=== PATIENT | female | born 1970 | race Caucasian/White ===

== ENCOUNTER 2019-09-06 18:32 | Emergency (ER) | payer BC, SELFPAY ==
[2019-09-06 18:34] VITALS: BP 160/96; PULSE 84; RESP 19; TEMP 36.7; O2SAT 98; BMI 49.4
--- NOTE | 2019-09-06 18:38 | XR_ITS ---
PROCEDURE: XR HUMERUS RT CLINICAL INDICATION: fall Posttraumatic pain COMPARISON: No exams were available for comparison FINDINGS: No fracture or dislocation. No lytic or blastic change. There is normal mineralization. There are mild osteoarthritic changes of the glenohumeral joint. Bone plate is present along the distal shaft of the clavicle. Other findings:None. IMPRESSION: No acute findings. Dictated by: Abraham West MD 09/06/2019 19:45 Electronically signed by Abraham West MD in [place] 09/06/2019 19:45
--- NOTE | 2019-09-06 18:38 | XR_ITS ---
PROCEDURE: XR ELBOW RT MIN 3V CLINICAL INDICATION: fall Posttraumatic pain COMPARISON: No exams were available for comparison FINDINGS: No fracture or dislocation. No lytic or blastic change. There is normal mineralization. Minimal osteoarthritic changes are present. There is a small calcific density along the coracoid process seen on the lateral view suggesting a small spur. No displaced fat pad Other findings:None. IMPRESSION: No acute findings. Dictated by: Abraham West MD 09/06/2019 19:48 Electronically signed by Abraham West MD in [place] 09/06/2019 19:48
--- NOTE | 2019-09-06 18:38 | XR_ITS ---
PROCEDURE: XR FOREARM RT 2V CLINICAL INDICATION: fall Posttraumatic pain COMPARISON: XR WRIST RT MIN 3V from 09/06/2019 XR HAND RT MIN 3V from 09/06/2019 FINDINGS: There is an impacted displaced fracture involving the distal radius with intra-articular involvement. There is 8 mm lateral and 10 mm anterior displacement of the lateral fracture fragment. There is an associated avulsion of the ulnar styloid process minimally distracted as well as a transverse fracture involving the distal aspect of the ulna IMPRESSION: Displaced comminuted intra-articular distal radial fracture with nondisplaced distal ulnar fracture and minimally distracted ulnar styloid process fracture Dictated by: Abraham West MD 09/06/2019 19:53 Electronically signed by Abraham West MD in [place] 09/06/2019 19:53
--- NOTE | 2019-09-06 18:52 | HMH.EDGENADL ---
ED Disposition Clinical Impression: Radial head fracture, closed Disposition: Home, Self-Care Condition on Discharge: Good Instructions: DI for Acute Pain -- Adult Additional Instructions: These follow-up with Dr. Pettit tomorrow morning at 9 AM. Her number is [phone] Wilver's number her office number and here [phone] Prescriptions: Ketorolac Tromethamine [Toradol 10mg tablet] 10 mg PO Q6H 5 Days #20 tab Transmission Status: Pending to [id number] Referrals: Provider,Referral, [Primary Care Provider] - - Critical Care Critical Care Time: No Attestation: On 09/06/19, the high probability of a clinically significant, sudden or life threatening deterioration of the following system(s) required my full and direct attention, intervention and personal management. The time I documented below is in addition to time spent performing reported procedures but includes the following listed in this critical care notation. Medical Decision Making - Medical Records Medical records reviewed: Yes: I reviewed the patient's medical records. - Nikolay Inquiry Pt receiving controlled substance: No Vital Signs: 09/06/19 18:34 Temperature 98.1 F Temperature Source Oral Pulse Rate [Radial] 84 Respiratory Rate 19 Blood Pressure [Right Arm] 160/96 H Blood Pressure Mean [Right Arm] 117 Blood Pressure Source [Right Arm] Automatic Cuff Blood Pressure Position [Right Arm] Supine 02 Sat by Pulse Oximetry 98 Oxygen Delivery Method Room Air - Lab Data Lab results reviewed: Yes: I reviewed the patient's lab results. Orders (Tests/Meds): ED MEDICATIONS Discontinued Medications Generic Name Dose Route Start Last Admin Trade Name Abby PRN Reason Stop Dose Admin Acetaminophen/Codeine Phosphate 1 deep 09/06/19 19:29 Acetaminophen W/Codeine #3 Take Home Pack (6) PO 09/06/19 19:30 ONCE ONE Ketorolac Tromethamine 60 mg 09/06/19 19:26 Toradol 60mg/2ml Vial IM 09/06/19 19:27 ONCE ONE Morphine Sulfate 4 mg 09/06/19 19:26 Morphine 2mg/Ml Syringe IM 09/06/19 19:27 ONCE ONE ORDERS Category Date Time Status XR elbow RT min 3V Stat Exams 09/06/19 18:38 Taken XR forearm RT 2V Stat Exams 09/06/19 18:40 Taken XR hand RT min 3V Stat Exams 09/06/19 18:50 Taken XR humerus RT Stat Exams 09/06/19 18:38 Taken XR wrist RT min 3V Stat Exams 09/06/19 18:38 Taken - Radiology Data #1 Image(s): Wrist Preliminary Findings: Abnormal (He has a distal radial fracture placed) General Adult HPI - General Chief complaint: PAIN Stated complaint: AO 09/06/19 fall possible broken R arm Time Seen by Provider: 09/06/19 18:52 Mode of Arrival: Ambulatory Source of Information: Patient Limitations: No Limitations Description of Symptoms (Recalled from ER Triage Doc. by RN): tripped over dog and hurt righ arm - History of Present Illness HPI narrative: 49-year-old female presents the ED after a fall. She was outside walking her dog about 40 minutes prior to arrival to the emergency department and her dog got site of a feline and darted towards the animal. When this transpired patient fell with an outstretched right hand is complaining of wrist pain arm pain and elbow pain. Patient states the pain is 4 out of 10 and manageable with ice applied is the alleviating factor she does describe this pain is sharp. And she states exacerbating factors include ambulation of the arm patient denies any other trauma patient denies any other symptoms. - Related Data Previous Rx's Medication Instructions Recorded Ketorolac Tromethamine [Toradol 10 mg PO Q6H 5 Days #20 tab 09/06/19 10mg tablet] Allergies Allergy/AdvReac Type Severity Reaction Status Date / Time No Known Allergies Allergy Verified 09/06/19 18:41 [facility] History - Hepatitis A Screen Drug use history?: No High risk sexual behaviors?: No History of sexually transmitted infection?: No Curre
--- NOTE | 2019-09-06 19:31 | PC.NURSE ---
with pts permission pts was updated on the pts condition at this time.
--- NOTE | 2019-09-06 19:50 | PC.NURSE ---
3 Ulnar gutter placed, stabilizing wrist and elbow, wrapped with nadir wrap and placed in sling. Cap refill <3 sec and normal sensation. Pt educated on monitoring distal circulation.
[2019-09-06 19:53] VITALS: BP 152/82; PULSE 86; RESP 14; TEMP 36.7; O2SAT 98
== END 2019-09-06 19:57 | disposition home or self-care (01) ==
PROVIDERS: Emergency Provider Family Medicine
DX: S52.121A Displaced fracture of head of right radius, initial encounter for closed fracture (principal); S52.614A Nondisplaced fracture of right ulna styloid process, initial encounter for closed fracture; W01.0XXA Fall on same level from slipping, tripping and stumbling without subsequent striking against object, initial encounter; Y93.K1 Activity, walking an animal; Y92.414 Local residential or business street as the place of occurrence of the external cause
CPT/HCPCS: 29125; 73060; 73080; 73090; 73110; 73130; 96372; 96375; 99284

== ENCOUNTER → 2019-09-07 13:58 | Outpatient (CLI) | payer BC, SELFPAY ==
--- NOTE | 2019-09-07 14:04 | CT_ITS ---
PROCEDURE: CT WRIST RT WO CON CLINICAL HISTORY: wrist fracture Follow-up fracture, injury with pain COMPARISON: XR WRIST RT MIN 3V from 09/06/2019 TECHNIQUE: Axial images obtained with sagittal and coronal reformats. All CT scans at the facility use one or more dose reduction, viz: automated exposure control, ma/kV adjustment per patient size (including targeted exams where dose is matched to indication, i.e. head), or iterative reconstruction technique. FINDINGS: There is an impacted and comminuted distal radial fracture. There are both transverse and longitudinal components with a longitudinal components extending into the articular surface. There is lateral displacement of the lateral fracture fragment approximately 9 mm. There is anterior angulation of the distal fracture fragment. There is an associated avulsion fracture of the ulnar styloid process. There is a small curvilinear area of increased density involving the medial aspect and proximal aspect of the lunate possibly due to small impaction type injury. IMPRESSION: Comminuted impacted distal radial fracture with displacement of the lateral fracture fragment an intra-articular extension associated with avulsion fracture of the ulnar styloid and suspected impaction fracture of the proximal and medial aspect of the lunate Dictated by: Abraham West MD 09/07/2019 15:19 Electronically signed by Abraham West MD in [place] 09/07/2019 15:19
--- NOTE | 2019-09-07 15:52 | ECG_ITS ---
APPROVED REPORT Exam: Resting ECG HR:63 bpm ECG Measurements Heart Rate 63 AXES NC 164 P 35 QRSd 92 QRS -13 QT 398 T 3 QTc 407 <Conclusion> Normal sinus rhythm RSR' or QR pattern in V1 suggests right ventricular conduction delay Nonspecific T wave abnormality Abnormal ECG Electronically signed by : Reginald Cyr, 09/08/2019 17:16:56
[2019-09-07 15:55] LABS: Basophils # 0.1 K/mm3 (0-0.2); Basophils % 0.6 % (0.1-2.0); Eosinophils # 0.2 K/mm3 (0.0-0.4); Eosinophils % 2.4 % (0.1-12.0); Hematocrit 41.2 % (37.0-47.0); Hemoglobin 13.1 g/dL (12.2-16.2); Lymphocytes # 2.5 K/mm3 (0.7-4.5); Lymphocytes % 25.8 % (10-50); Mean Corpuscular HGB Conc 31.7 g/dL (31.8-35.4); Mean Corpuscular Hemoglobin 27.2 pg (27.0-31.2); Mean Corpuscular Volume 85.8 fl (81-99); Monocytes # 0.3 K/mm3 (0.1-1.0); Monocytes % 3.3 % (1.7-9.3); Neutrophils # 6.7 K/mm3 (1.8-7.8); Neutrophils % 67.9 % (37.0-80.0); Platelet Count 378 K/mm3 (142-424); Red Cell Distribution Width 13.8 % (11.5-17.5); White Blood Count 9.8 K/mm3 (4.8-10.8)
[2019-09-07 17:42] LABS: Chloride 103 mmol/L (98-107); Potassium 3.9 mmoL/L (3.5-5.1); Sodium 140 mmol/L (136-145)
[2019-09-07 17:44] LABS: Blood Urea Nitrogen 18 mg/dl (7-17); Estimated Glomerular Filt Rate 88 ml/min (>60); GFR (African American) 107 ML/MIN (>60)
[2019-09-07 17:45] LABS: Alanine Aminotransferase 64 U/L (12-78); Albumin Level 4.2 g/dl (3.5-5.0); Albumin/Globulin Ratio 1.5 (1.1-1.8); Alkaline Phosphatase 92 U/L (38-126); Anion Gap 13.9 mEq/L (5-15); Aspartate Amino Transferase 95 U/L (14-36); Bilirubin,Total 0.4 mg/dl (0.2-1.3); Calcium 9.7 mg/dl (8.4-10.2); Carbon Dioxide 27 mmol/L (22.0-30.0); Globulin 2.8 g/dL (1.3-3.2); Glucose 82 mg/dl (74-100)
== END ==
PROVIDERS: PCP Internal Medicine; Visit Provider Orthopaedic Surgery
DX: Z01.818 Encounter for other preprocedural examination (principal); S52.571A Other intraarticular fracture of lower end of right radius, initial encounter for closed fracture
CPT/HCPCS: 36415; 73200; 80053; 85025; 93005

== ENCOUNTER 2019-09-10 05:59 | Day surgery (SDC) | payer BC, SELFPAY ==
[2019-09-09 10:11] VITALS: BMI 51.0
[2019-09-10] VITALS (17 sets, daily range): BP systolic 120–185; BP diastolic 56–102; PULSE 75–95; RESP 16–20; TEMP 36.6–43; O2SAT 90–95
--- NOTE | 2019-09-10 | XR_ITS ---
PROCEDURE: XR WRIST RT MIN 3V CLINICAL INDICATION: s/p ORIF right distal radius Follow-up ORIF distal radius COMPARISON: XR WRIST RT MIN 3V from 09/06/2019 XR WRIST RT 2V from 09/10/2019 FINDINGS: There is an anterior bone plate present stabilizing distal radial fracture. Bony elements are obscured by the overlying cast. The does appear to be good alignment. C-arm images are also submitted during ORIF of the distal radial fracture with bone plate and multiple screws present within the bone plates and good alignment. IMPRESSION: Good alignment status post ORIF distal radial fracture. Dictated by: Abraham West MD 09/10/2019 14:09 Electronically signed by Abraham West MD in [place] 09/10/2019 14:09
--- NOTE | 2019-09-10 06:43 | P.PN_ITS ---
[facility] Anesthesia Checklist - Patient Identification Patient Identification: Arm Band, Verbal (Name & ) - Structural Data Admitted From: Home Planned Operative Procedure/s: orif wrist Consent for Planned Operative Procedure(s) Verified: Yes Verified Documents: History and Physical - NPO Status Verified Time NPO: 00:00 - Additional verifications Patient : No Anesthesia Reactions: No Hx Blood Transfusions: No Blood Transfusion Reaction: No Cephalosporin Allergy: No Previous Colonoscopy: No - Cardiovascular Assessment Heart Sounds: S1 & S2 Pulse Strength: Baseline Pulse Rhythm: Regular Peripheral Edema: No - Airway Assessment C-Spine Mobility Assessed: Yes TMJ Mobility Assessed: Yes Dentition: Good Dentition - Neurological Assessment Level of Consciousness: Awake, Alert, Appropriate Hx Seizures: No Numbness or tingling in extremities: No - Anesthesia Plan Anesthesia Risk discussed: Yes Anesthesia Plan: Verified ASA Class: III Anesthesia Type: General w/block [facility] History I have reviewed the patient's past medical history: Yes Medical History: Reports:: Anxiety, Hypertension Denies:: Cancer, Diabetes Mellitus Type 1, Diabetes Mellitus Type 2, Internal Pacemaker, MRSA, Seizures *Have you ever received a pneumonia vaccine?: No *Have you received a flu vaccine this season?: Yes Other Medical History: Denies: Blood Transfusion Reaction Anesthesia experience/problems:: none Laterality Cases: Left: Other (LT clavicle), Right: Total Knee Replacement Other Surgeries: Yes: Cholecystectomy, . No: Pacemaker Amputation: No Fractures: Yes (clavicle) - *Social History Educational Level: Completed College Smoking Status: Never smoker Alcohol Intake: never Alcohol Intake Frequency:: holidays/special occasions only Substance Use Type: other *Occupational Status:: other Housing: house Household Members: children *Travel in the last 8 weeks: None - Psychiatric History Pschychiatric History:: Reports:: Anxiety Family Hx:: No significant family history
--- NOTE | 2019-09-10 10:36 | SUR.OPER ---
0833: Bishnu Norris RN in pre op updated incision made at 0821 0941: Kaleigh Smith RN updated Dr Lockwood has come into room to assist and they are starting to plate now 1032: Guille Herrera RN updated verbatim from Dr Connelly that this is very difficult fracture
--- NOTE | 2019-09-10 12:32 | HMH.ANESI ---
[facility] Anesthesia Record Part I Intake, IV Amount: 1,700 Estimated blood loss (mL): 10 Urine output (mL): 525 Blood Products used (#): none Blood Pressure: 120/56 SaO2: 91 Pulse Rate: 91 Respiratory Rate: 16 Temperature: 98.3 F Patient is:: Drowsy, Mask O2, Stable Stable to PACU at:: 12:26
--- NOTE | 2019-09-10 13:08 | HMH.OPNOTE ---
Date of procedure: 09/10/19 Pre-op Diagnosis:: 1) right distal radius fracture 2) right ulnar styloid fracture Post-op Diagnosis:: 1) right distal radius fracture 2) right ulnar styloid fracture Procedure performed:: ORIF R distal radius fracture Surgeon:: Enriqueta Connelly MD [employer] Professor(s):: Dinesh Lockwood MD COMMUNITY PHARMACIST:: Reginald Jason Anesthesia: GETA, regional (supraclavicular nerve block) Estimated blood loss (mL): 25 Clinical Note:: 49yo RHD F who sustained an injury to the R wrist on 09/06/19. She was walking her dog, when the dog spotted their cat and started running, jerking her right arm that held the leash and pulling her to the ground. She fell onto her outstretched right arm and reports an immediate crunching sensation with severe pain in the wrist. She was seen in the ER at [facility], were XR revealed a distal radius fracture; splint was applied. I saw her in the office the following day, where she reported pain in the R wrist and R elbow/shoulder, with normal ROM of shoulder/elbow. No numbness/tingling reported in the fingers. No open wounds on the RUE, mild ecchymosis over volar wrist. She reports a medical history significant only for HTN, for which she takes amlodipine and losartan-HCTZ. No history of diabetes, BMI 49.7; non-smoker. No anticoagulant use. She has no known history of osteopenia/osteoporosis and has never had a DEXA scan. She underwent uterine ablation several years ago; no supplemental hormone use. Her PCP is Dr. Mckinley. 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 Treatment options were discussed with the patient; I recommend surgical fixation of this fracture. I discussed the risks and benefits of both nonoperative and surgical intervention, including persistent pain, stiffness and disability with nonoperative treatment, versus the risk of bleeding, infection, neurovascular damage, nonunion, hardware failure, and persistent pain/stiffness with surgical intervention. The patient vocalized understanding of the above and has elected to proceed with surgical intervention. Pre-operative testing was within normal limits. Operative findings:: comminuted, intra-articular R distal radius fracture IMPLANTS: [employer] Distal Radius System 4-hole standard Right plate distal fixation = 2.3mm locking screws x 7 shaft fixation = 3.5mm cortical/non-locking + locking screws x4 Operative note:: The patient was identified in preoperative holding and the right arm signed by myself. Consent was verified with the patient and all questions answered. She was seen by anesthesia and supraclavicular nerve block administered to the right upper extremity. The patient was then transferred to the OR and placed supine on the operative table with a hand table under the right upper extremity. All bony prominences were well-padded and SCDs placed on bilateral lower extremities. 2 grams cefazolin was infused and general endotracheal anesthesia induced. Once the patient was asleep, her splint was removed and a nonsterile tourniquet placed on the upper right arm. The right arm was then prepped and draped in the usual sterile fashion. Timeout was performed, identifying the correct patient, correct procedure, and correct site. The procedure was begun by bringing in the C-arm to confirm the site of the fracture in the right distal radius; a small fracture was seen at the tip of the ulnar styloid as well. The desired surgical incision was drawn over the volar aspect of the right wrist, centered over the flexor carpi radialis tendon and extending from the distal wrist flexion crease approximately 8 cm proximally. The arm was then exsanguinated with an Esmarch and the tourniquet inflated to 250 mmHg. The skin was incised with a sterile 15 blade and subcutaneous tissue bluntly dissected with tenotomy scissors. The subcutaneous tissue was spread until the FCR was identified. I incised the anterior FCR tendon sheath and retracte
--- NOTE | 2019-09-10 13:32 | XR_ITS ---
PROCEDURE: XR ELBOW LT 2V CLINICAL INDICATION: L elbow pain Left elbow pain after surgery COMPARISON: XR ELBOW RT MIN 3V from 09/06/2019 FINDINGS: There is a faint lucency involving the medial aspect of the coracoid process. This may only be related to a Mach line within an osteophyte. No displaced fat pad. No other significant anomalies are evident. The joint spaces are well-preserved. No significant degenerative/arthritic changes. No erosive changes evident. Other findings:None. IMPRESSION: Hypertrophic changes at the coronoid process with lucency at the base of a spur nonspecific. Cannot completely exclude the possibility of a nondisplaced fracture but would favor a Mach line at the base of an osteophyte. Dictated by: Abraham West MD 09/10/2019 13:52 Electronically signed by Abraham West MD in [place] 09/10/2019 13:52
--- NOTE | 2019-09-10 13:36 | SUR.PREOP ---
1335 0.5mg Dilaudid IV given per Sujata Levy RN for L inner ebow pain.
--- NOTE | 2019-09-10 13:39 | XR_ITS ---
PROCEDURE: XR CHEST PORTABLE CLINICAL HISTORY: low oxygen saturation, postoperative low oxygen saturation COMPARISON: No exams were available for comparison FINDINGS: There is mild cardiomegaly without failure. Lungs are free of acute infiltrate. No effusions or pneumothorax. There is a bone plate overlying the right clavicle. IMPRESSION: Cardiomegaly, no acute finding Dictated by: Abraham West MD 09/10/2019 13:46 Electronically signed by Abraham West MD in [place] 09/10/2019 13:46
--- NOTE | 2019-09-10 13:46 | CA_ITS ---
APPROVED REPORT Left Upper Extremity Venous Study for DVT. Transportation Escort: Elise Decker RVT Indications Upper Extremity Pain: S/P SURGERY ON RT WRIST NOW C/O LT ELBOW PAIN Risk Factors Obesity Vein Imaging IJV (L): Normal phasic flow is seen. Normal flow, augmentation and compression is seen. No evidence of Deep Vein Thrombosis. No abnormalities are demonstrated. SCV (L): Normal phasic flow is seen. Normal flow, augmentation and compression is seen. No evidence of Deep Vein Thrombosis. No abnormalities are demonstrated. Axillary (L): Normal phasic flow is seen. Normal flow, augmentation and compression is seen. No evidence of Deep Vein Thrombosis. No abnormalities are demonstrated. Brachial (L): Normal phasic flow is seen. Normal flow, augmentation and compression is seen. No evidence of Deep Vein Thrombosis. No abnormalities are demonstrated. Basilic (L): Compressible Cephalic (L): Compressible Radial (L): Compressible Ulnar (L): Compressible Conclusion Study suggests no evidence of DVT of the left upper extremity. Study suggests no evidence of SVT of the left upper extremity. Electronically signed by : Abraham West MD 09/10/2019 16:26:01
[2019-09-10 13:51] LABS: Microscopic,Cath URINE MICROSCOPIC (MICROSCOPIC)
[2019-09-10 13:52] LABS: Appearance,Urine/Cath CLEAR (Clear); Bilirubin,Cath Negative (Negative); Blood, Urine/Cath Negative (Negative); Color,Urine/Cath YELLOW (Yellow); Glucose,Urine/Cath (UA) Negative (Negative); Ketones,Urine/Cath Negative (Negative); Leukocyte Esterase,Cath Negative (Negative); Nitrate,Cath Negative (Negative); PH,Urine/Cath 7.5 (5.0-8.5); Protein,Urine/Cath TRACE (Negative); Specific Gravity, Urine/Cath 1.025 (1.005-1.030); Urobilinogen,Cath 0.2 EU/dl (0.2)
--- NOTE | 2019-09-10 14:06 | PC.NURSE ---
1238-pt becoming more awake and responsive to staff, oral airway removed at this time, O2 sats stable on 6L via simple mask
--- NOTE | 2019-09-10 14:27 | PC.NURSE ---
1310-Dr. Connelly at pt's bedside, assessing pt's left arm r/t pain complaints, no further orders at this time, will continue to monitor 1326-pt reports pain is worsening and not improving, pt reports unable to move left arm w/out severe pain, at bedside, pt's O2 sats remain in low 90's on 3-4L/nc, pt denies soa, unsuccessfully attempting to titrate pt off O2, notified Dr. Connelly at bedside who ordered for pt to have xrays of left elbow and chest xray 1335-pt reports pain level 8/10 to left arm-medicated per MAR w/Dilaudid 0.5mg IVP, vss 1337-radiology at bedside obtaining left elbow and chest xray 1345-Dr. Connelly at bedside, reviewed all xrays and reported they were negative, Dr. Connelly ordered for pt to have ultrasound at bedside to check for blood clot in post operative phase and to notify her with the results, vss, family at bedside 1346-detailed bedside report given DASHA Booker, pt transferred to phase II at this time, pt on 2l/nc, vss, remains at bedside, pt drinking water/patel mist without difficulty, pt reports arm pain easing and now rates <5/10 while at rest, pt stable.
--- NOTE | 2019-09-10 15:39 | SUR.OPER ---
1130: Ancef 1 gm IV per order, administered by LEO Garcia 1155: Guille Herrera RN updated closing, will be dressing and casting soon
--- NOTE | 2019-09-13 08:16 | P.PN_ITS ---
[facility] Anesthesia Record Part II Discharge Time: 13:56 Destination: Surgical Day Care (OP Surgery) PACU nurse assessment reviewed?: Yes Patient Condition:: Good Anesthesia Complications:: None Swallowing reflex intact?: Yes Cyanosis?: No Blood Pressure: 161/83 Pulse Rate: 90 Temperature: 98.5 F Mental Status: Alert & Oriented Pain level:: 5 Nausea and/or vomitting:: None Intake, IV Amount: 50
[2019-09-13 08:17] VITALS: BP 161/83; PULSE 90; TEMP 36.9
== END 2019-09-10 15:15 | disposition home or self-care (01) ==
PROVIDERS: PCP Internal Medicine; Visit Provider Orthopaedic Surgery
PROC: (CPT 25609; principal; 2019-09-10 07:30)
DX: S52.571A Other intraarticular fracture of lower end of right radius, initial encounter for closed fracture (principal); S52.611A Displaced fracture of right ulna styloid process, initial encounter for closed fracture; W01.0XXA Fall on same level from slipping, tripping and stumbling without subsequent striking against object, initial encounter
CPT/HCPCS: 25609; 25652; 71045; 73070; 73100; 73110; 76000; 81001; 93971; 96374; C1713; C1776; J0330; J2405

== ENCOUNTER → 2019-09-17 13:51 | Outpatient (CLI) | payer BC, SELFPAY ==
--- NOTE | 2019-09-17 13:58 | XR_ITS ---
PROCEDURE: XR WRIST RT MIN 3V CLINICAL INDICATION: post op wrist fx Follow-up surgery COMPARISON: XR WRIST RT MIN 3V from 09/06/2019 XR WRIST RT MIN 3V from 09/10/2019 FINDINGS: There is a cast in place obscuring fine bony detail. Status post ORIF distal radial fracture with volar bone plate with good alignment. There is some hyperdensity at the fracture site which could be due to some placed bone cement. IMPRESSION: Good alignment status post ORIF distal radial fracture Dictated by: Abraham West MD 09/17/2019 15:49 Electronically signed by Abraham West MD in [place] 09/17/2019 15:49
== END ==
PROVIDERS: PCP Internal Medicine; Visit Provider Orthopaedic Surgery
DX: S52.614D Nondisplaced fracture of right ulna styloid process, subsequent encounter for closed fracture with routine healing (principal); S52.571D Other intraarticular fracture of lower end of right radius, subsequent encounter for closed fracture with routine healing
CPT/HCPCS: 73110

== ENCOUNTER → 2019-09-24 14:32 | Outpatient (CLI) | payer BC, SELFPAY ==
--- NOTE | 2019-09-24 14:34 | XR_ITS ---
PROCEDURE: XR WRIST RT MIN 3V CLINICAL INDICATION: Wrist fx Follow-up fracture COMPARISON: XR WRIST RT MIN 3V from 09/06/2019 XR WRIST RT MIN 3V from 09/10/2019 XR WRIST RT MIN 3V from 09/17/2019 FINDINGS: Status post ORIF distal radial fracture with anterior bone plate in place with good alignment of the fracture fragments. Nondisplaced avulsion fracture also noted of the ulnar styloid. IMPRESSION: Good alignment status post ORIF distal radial fracture Dictated by: Abraham West MD 09/24/2019 15:28 Electronically signed by Abraham West MD in [place] 09/24/2019 15:28
== END ==
PROVIDERS: PCP Internal Medicine; Visit Provider Orthopaedic Surgery
DX: S52.614D Nondisplaced fracture of right ulna styloid process, subsequent encounter for closed fracture with routine healing (principal); S52.571D Other intraarticular fracture of lower end of right radius, subsequent encounter for closed fracture with routine healing
CPT/HCPCS: 73110

== ENCOUNTER → 2019-10-12 09:14 | Outpatient (CLI) | payer BC, SELFPAY ==
--- NOTE | 2019-10-12 09:20 | XR_ITS ---
PROCEDURE: XR WRIST RT MIN 3V CLINICAL INDICATION: Wrist FX FU- Cast removed Follow-up ORIF, cast removal COMPARISON: XR WRIST RT MIN 3V from 09/06/2019 XR WRIST RT MIN 3V from 09/10/2019 XR WRIST RT MIN 3V from 09/17/2019 XR WRIST RT MIN 3V from 09/24/2019 FINDINGS: Status post ORIF of the distal radius with a volar bone plate and multiple screws. There does appear to be good alignment. There is a small fragment which is displaced medially toward the distal aspect of the ununited fracture noted at the ulnar styloid. IMPRESSION: Good alignment status post ORIF distal radius. There is a displaced fragment along the medial aspect of the distal radius lying distal to the tip of the ulna. Dictated by: Abraham West MD 10/12/2019 09:58 Electronically signed by Abraham West MD in [place] 10/12/2019 09:58
== END ==
PROVIDERS: PCP Internal Medicine; Visit Provider Orthopaedic Surgery
DX: S52.121A Displaced fracture of head of right radius, initial encounter for closed fracture (principal)
CPT/HCPCS: 73110

== ENCOUNTER 2019-10-12 11:19 | Outpatient (RCR) | payer BC, SELFPAY | END 2019-10-12 11:45 | disposition home or self-care (01) | LOC: OT 11:19 | PROVIDERS: Visit Provider Orthopaedic Surgery | DX: S52.121A Displaced fracture of head of right radius, initial encounter for closed fracture (principal) | CPT/HCPCS: 97763 ==

== ENCOUNTER → 2019-10-14 11:11 | Outpatient (CLI) | payer BC, SELFPAY ==
--- NOTE | 2019-10-14 11:11 | CT_ITS ---
PROCEDURE: CT WRIST RT WO CON CLINICAL HISTORY: S/P wrist FX Follow-up fracture COMPARISON: CT WRIST RT WO CON from 09/07/2019 XR WRIST RT MIN 3V from 10/12/2019 TECHNIQUE: Axial images obtained with sagittal and coronal reformats. All CT scans at the facility use one or more dose reduction, viz: automated exposure control, ma/kV adjustment per patient size (including targeted exams where dose is matched to indication, i.e. head), or iterative reconstruction technique. FINDINGS: There has been prior ORIF of the distal radius. There is a volar bone plate at the distal radius with multiple screws. There is comminuted fracture of the distal radius with intra-articular extension. There is mild separation of the fracture fragments. There is discontinuity of the cortex at the radial articular surface. One of these areas of discontinuity measures approximately 5 mm in with between the most lateral fragment and the central fragment. No obvious bony destructive process. No abnormal fluid collections. There is an avulsion fracture at the base of the ulnar styloid which is nondisplaced. There is mild widening of the scapholunate space which can be seen with ligamentous injury. IMPRESSION: Status post ORIF of comminuted distal radial fracture. Fracture lines are still visible with intra-articular extension. There is some mild lateral displacement of the lateral fracture fragment of approximately 5 mm. Mild widening of the scapho lunate space which could be seen with ligamentous injury. Dictated by: Abraham West MD 10/15/2019 13:09 Electronically signed by Abraham West MD in [facility] 10/15/2019 13:09
== END ==
PROVIDERS: PCP Internal Medicine; Visit Provider Orthopaedic Surgery
DX: S52.614A Nondisplaced fracture of right ulna styloid process, initial encounter for closed fracture (principal); S52.571A Other intraarticular fracture of lower end of right radius, initial encounter for closed fracture
CPT/HCPCS: 73200

== ENCOUNTER → 2019-10-29 09:00 | Outpatient (CLI) | payer BC, SELFPAY ==
--- NOTE | 2019-10-29 09:05 | XR_ITS ---
PROCEDURE: XR WRIST RT MIN 3V CLINICAL INDICATION: wrist FX FU Follow-up COMPARISON: XR WRIST RT MIN 3V from 09/10/2019 XR WRIST RT MIN 3V from 09/17/2019 XR WRIST RT MIN 3V from 09/24/2019 XR WRIST RT MIN 3V from 10/12/2019 FINDINGS: Status post ORIF of the distal radius with ventral bone plate in place. Mildly displaced radial styloid fragment once again noted unchanged old ulnar styloid fracture also noted. IMPRESSION: No change status post ORIF distal radial fracture with mildly displaced radial styloid fragment Dictated by: Abraham West MD 10/29/2019 15:01 Electronically signed by Abraham West MD in [facility] 10/29/2019 15:01
== END ==
PROVIDERS: PCP Internal Medicine; Visit Provider Orthopaedic Surgery
DX: S52.614A Nondisplaced fracture of right ulna styloid process, initial encounter for closed fracture (principal); S52.571D Other intraarticular fracture of lower end of right radius, subsequent encounter for closed fracture with routine healing
CPT/HCPCS: 73110

== ENCOUNTER → 2019-11-18 10:00 | Outpatient (CLI) | payer BC, SELFPAY ==
--- NOTE | 2019-11-18 10:03 | XR_ITS ---
PROCEDURE: XR WRIST RT MIN 3V CLINICAL INDICATION: ORIF DRF FU- out of brace Follow-up ORIF COMPARISON: XR WRIST RT MIN 3V from 09/17/2019 XR WRIST RT MIN 3V from 09/24/2019 XR WRIST RT MIN 3V from 10/12/2019 XR WRIST RT MIN 3V from 10/29/2019 FINDINGS: Volar bone plate remains in place with multiple cortical screws. There is good alignment. There are osteoarthritic changes of the radiocarpal joint are. There is questionable intra-articular extension of 1 of the radial screws. 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 IMPRESSION: Overall no significant change good alignment status post ORIF distal radial fracture with questionable articular involvement of 1 of the radial screws with nonunion of the distal radius Dictated by: Abraham West MD 11/18/2019 15:41 Electronically signed by Abraham West MD in [facility] 11/18/2019 15:41
== END ==
PROVIDERS: PCP Internal Medicine; Visit Provider Orthopaedic Surgery
DX: S52.614D Nondisplaced fracture of right ulna styloid process, subsequent encounter for closed fracture with routine healing (principal); S52.571D Other intraarticular fracture of lower end of right radius, subsequent encounter for closed fracture with routine healing
CPT/HCPCS: 73110

== ENCOUNTER → 2019-12-23 08:44 | Outpatient (CLI) | payer BC, SELFPAY ==
--- NOTE | 2019-12-23 08:51 | XR_ITS ---
PROCEDURE: XR WRIST LT MIN 3V CLINICAL INDICATION: wrist FU Follow-up fracture COMPARISON: CR XR WRIST RT MIN 3V from 09/24/2019 CR XR WRIST RT MIN 3V from 10/12/2019 CR XR WRIST RT MIN 3V from 10/29/2019 CR XR WRIST RT MIN 3V from 11/18/2019 FINDINGS: Status post ORIF distal radial fracture with anterior bone plate in place stabilizing the comminuted fractures with good alignment. There has been overall no significant change compared to the previous exam. Diffuse osteopenia with osteoarthritic changes of the wrist once again noted. IMPRESSION: Postsurgical changes with good alignment of distal radial fracture fragments with diffuse osteopenia and osteoarthritic changes of the radiocarpal joint Dictated b Abraham West MD 12/23/2019 13:37 Abraham West MD in [facility] 12/23/2019 13:37
== END ==
PROVIDERS: Visit Provider Orthopaedic Surgery
DX: S52.614D Nondisplaced fracture of right ulna styloid process, subsequent encounter for closed fracture with routine healing (principal); S52.571D Other intraarticular fracture of lower end of right radius, subsequent encounter for closed fracture with routine healing
CPT/HCPCS: 73110

== ENCOUNTER 2020-01-04 11:00 | Outpatient (RCR) | payer BC, SELFPAY ==
--- NOTE | 2019-11-09 12:53 | HMH.OTOPEV ---
OT Inpatient Evaluation Rehab OT Outpatient Eval Start: 11/09/19 12:30 Freq: Status: Active Protocol: Document 11/09/19 12:30 RMARSHALL (Rec: 11/09/19 12:43 RMARSHALL [id number]) Electronically Signed By Ronda Marley OT 11/09/19 12:30 Outpatient Therapy Subjective History Subjective History Pt is a 49 year old female who reports to therapy for initial evaluation to right wrist. Pt was injured on 09/06 while she was walking her dog and fell resulting in a wrist fx. Pt required surgery on 09/11/19 for R wrist ORIF due to distal radius fracture. Pt demonstrates with decreased AROM and strenth at right wrist. Pt will continue to be seen twice a week in order to address all deficits. Chief Complaint Pain,Stiff,Weakness Symptom Type Ache,Throb,Sharp,Dull,Burning Symptoms Relieved By Rest/Positioning,Ice Symptoms Aggravated By Physical Activity,Lifting Prior Functional Limitations None Current Functional Limitations Reaching,Lifting,Housework, Dressing,Driving,Sleeping, Recreation Activity Symptom Description Intermittent,Activity Dependent Level of pain today (0-10) 1 Pain scale - at its best (0-10) 1 Pain scale - at its worst (0-10) 4 Wrist/Hand Eval Wrist Range of Motion Right Wrist Extension Active Range of Motion ( 22 degrees degrees) Wrist Flexion Active Range of Motion ( 42 degrees degrees) Wrist Radial Deviation Active Range of 26 degrees Motion (degrees) Wrist Ulnar Deviation Active Range of 12 degrees Motion (degrees) Forearm Supination Active Range of 10 degrees Motion (degrees) Forearm Pronation Active Range of Motion 90 degrees (degrees) Wrist Manual Muscle Testing Right Wrist Extension Strength Grade 2+ Poor+ Wrist Flexion Strength Grade 2+ Poor+ Wrist Radial Deviation Strength Grade 2+ Poor+ Wrist Ulnar Deviation Strength Grade 2+ Poor+ Forearm Supination Strength Grade 2+ Poor+ Forearm Pronation Strength Grade 2+ Poor+ OT Outpatient Assessment Impairments Problems/Impairments Palpation Tenderness,Impaired Range of Motion,Impaired Strength,Impaired Endurance, Impaired Lifting,Impaired
--- NOTE | 2019-12-14 08:54 | [facility]H.RHREAS ---
Rehab Reassessment Rehab OP Re-assessment Start: 12/14/19 08:02 Freq: Status: Active Protocol: Document 12/14/19 08:47 KOLTON (Rec: 12/14/19 08:54 [id number] [id number]) Electronically Signed By Ronda Marley OT 12/14/19 08:47 Rehab Re-assessment Objective Objective Notes Pt continues to be seen twice a week in order to address all deficits at right wrist. Pt received prom manual stretching to right wrist and fingers in all directions at each joint. Pt also engages in AROM exercises at wrist and hand. Today therapist began wrist strengthening with one pound. Pt does receive modalities in order to decrease pain/inflammation. Assessment Progress Assessment Progressing as Expected Assessment Notes Pt demonstrates an increase in both arom and strength at right wrist. Pt continues to be slightly limited, but she does report she is able to use the wrist more. Pt reports her worst pain now at a 3/10; most of the time she is 0/10 with no activity. Pt expressed she feels she is 75% better since beginning therapy. Current R wrist AROM and MMT Flex: 54 degrees; 3+ Ext: 54 degrees; 3+ RD: 30 degrees; 3 UD: 20 degrees: 3 Sup: 55 degrees; 3+ Pro: 90 degrees; 4 Patient goals met Pt has met all short term goals written on initial evaluation. Goals Not Met intermediate goals Revised Goals Pt needs to continue progressing toward all intermediate card tender goals written on initial evaluation. Plan Plan Continue with OT plan of care Frequency of Therapy 2x's a week Duration of therapy 6 more weeks Time and Billing Re-Eval Time 15 Re-Eval Billing Units 1 PHYSICIAN CERTIFICATION:
== END 2020-01-04 11:57 | disposition home or self-care (01) ==
LOC: OT 11:00
PROVIDERS: PCP Internal Medicine; Visit Provider Orthopaedic Surgery
DX: S52.614D Nondisplaced fracture of right ulna styloid process, subsequent encounter for closed fracture with routine healing (principal); S52.571D Other intraarticular fracture of lower end of right radius, subsequent encounter for closed fracture with routine healing
CPT/HCPCS: 97014; 97035; 97110; 97140; 97164; 97166; G0283

== ENCOUNTER → 2020-02-01 09:56 | Outpatient (CLI) | payer BC, SELFPAY ==
--- NOTE | 2020-02-01 09:58 | XR_ITS ---
PROCEDURE: XR DEXA AXIAL SKELETON CLINICAL HISTORY: routine COMPARISON: No exams were available for comparison FINDINGS: The right hip BMD is 0.601 with a T-score of -2.2. The left hip BMD is 0.700 with a T-score of -1.3. The lumbar spine BMD is 0.919 with a T-score of -1.2. IMPRESSION: This patient is considered osteopenic according to the World Health Organization criteria. Bone density is between 10 and 25 percent below young normal. Fracture risk is moderate. Treatment is advised. Based on these results a follow-up exam is recommended in 2 year. Dictated by: Abraham West MD 02/02/2020 00:28 Abraham West MD in [facility] 02/02/2020 11:36
[2020-02-01 12:19] LABS: 25-OH Vitamin D, Total 21.2 ng/mL (30-100)
== END ==
PROVIDERS: PCP Internal Medicine; Visit Provider Orthopaedic Surgery
DX: S52.123A Displaced fracture of head of unspecified radius, initial encounter for closed fracture (principal); T81.89XA Other complications of procedures, not elsewhere classified, initial encounter; E55.9 Vitamin D deficiency, unspecified
CPT/HCPCS: 36415; 77080; 82306

== ENCOUNTER → 2020-02-01 10:30 | Outpatient (CLI) | payer BC, SELFPAY | PROVIDERS: Visit Provider Orthopaedic Surgery | DX: E55.9 Vitamin D deficiency, unspecified (principal) | CPT/HCPCS: 36415; 82306 ==

== ENCOUNTER → 2020-03-28 13:31 | Outpatient (CLI) | payer BC, SELFPAY ==
--- NOTE | 2020-03-28 13:33 | MR_ITS ---
PROCEDURE: MR CERVICAL SPINE WO CON CLINICAL INDICATION: CERVICAL PAIN RT ARM PAIN, SWELLING AND NUMBNESS. BILATERAL HAND TINGLING, COMPARISON: No exams were available for comparison TECHNIQUE: Standard multiplanar multiecho sequences are performed without contrast. 3-D MIP and myelographic images are also rendered and reviewed FINDINGS: There is straightening of the cervical lordosis. The craniocervical junction has an unremarkable appearance. C2-C3, C3-C4, and C4-C5 have an unremarkable appearance. C5-C6: Mild bulging disc with a small central disc protrusion abutting the anterior aspect of the cord without flattening of the cord. There is borderline narrowing of the canal.. C6-C7: Degenerative disc disease with mild bulging disc. There is borderline narrowing of the canal. There is right foraminal narrowing secondary to small foraminal disc osteophyte complex. C7-T1 unremarkable. T1-T2: Degenerate disc disease. IMPRESSION: 1. C5-C6: Mild bulging disc with a small central disc protrusion abutting the anterior aspect of the cord without flattening of the cord. There is borderline narrowing of the canal.. 2. C6-C7: Degenerative disc disease with mild bulging disc. There is borderline narrowing of the canal. There is right foraminal narrowing secondary to small foraminal disc osteophyte complex. 3. No extruded herniated disc. Straightening of the cervical lordosis which may be due to patient positioning or muscle spasm. Dictated by: Abraham West MD 03/29/2020 13:22 Abraham West MD in [facility] 03/29/2020 13:22
== END ==
PROVIDERS: PCP Internal Medicine; Visit Provider Orthopaedic Surgery
DX: M54.2 Cervicalgia (principal)
CPT/HCPCS: 72141; 76376

== ENCOUNTER → 2021-06-20 12:23 | Outpatient (CLI) | payer BC, SELFPAY ==
[2021-06-20 13:10] LABS: Basophils # 0.2 K/mm3 (0-0.2); Basophils % 1.5 % (0.1-2.0); Eosinophils # 0.3 K/mm3 (0.0-0.4); Eosinophils % 2.9 % (0.1-12.0); Hematocrit 42.3 % (37.0-47.0); Hemoglobin 13.4 g/dL (12.2-16.2); Lymphocytes # 2.2 K/mm3 (0.7-4.5); Lymphocytes % 22.4 % (10-50); Mean Corpuscular HGB Conc 31.6 g/dL (31.8-35.4); Mean Corpuscular Hemoglobin 28.1 pg (27.0-31.2); Mean Corpuscular Volume 88.8 fl (81-99); Mean Platelet Volume 9.3 fl (7.4-10.4); Monocytes # 0.5 K/mm3 (0.1-1.0); Monocytes % 4.7 % (1.7-9.3); Neutrophils # 6.8 K/mm3 (1.8-7.8); Neutrophils % 68.7 % (37.0-80.0); Platelet Count 383 K/mm3 (142-424); Red Blood Count 4.76 M/mm3 (4.20-5.40); Red Cell Distribution Width 14.6 % (11.5-17.5); White Blood Count 9.9 K/mm3 (4.8-10.8)
[2021-06-20 13:51] LABS: Chloride 103 mmol/L (98-107)
[2021-06-20 13:52] LABS: Potassium 4.1 mmoL/L (3.5-5.1); Sodium 137 mmol/L (136-145)
[2021-06-20 13:54] LABS: Alanine Aminotransferase 21 U/L (12-78); Albumin Level 4.5 g/dl (3.5-5.0); Albumin/Globulin Ratio 1.7 (1.1-1.8); Alkaline Phosphatase 82 U/L (38-126); Anion Gap 11.1 mEq/L (5-15); Aspartate Amino Transferase 26 U/L (14-36); Bilirubin,Total 0.4 mg/dl (0.2-1.3); Blood Urea Nitrogen 18 mg/dl (7-17); Carbon Dioxide 27 mmol/L (22.0-30.0); Estimated Glomerular Filt Rate 105 ml/min (>60); GFR (African American) 127 ML/MIN (>60); Globulin 2.6 g/dL (1.3-3.2); Total Protein,Serum 7.1 g/dl (6.3-8.2)
[2021-06-20 13:55] LABS: Calcium 9.4 mg/dl (8.4-10.2); Chol/HDL Ratio 3.4 (1-3.5); Cholesterol 194 mg/dl (140-200); Glucose 93 mg/dl (74-100); HDL Cholesterol 57 mg/dl (40-60); Triglycerides 192 mg/dl (30-150); VLDL Cholesterol 38 mg/dL (0-40)
[2021-06-20 14:06] LABS: Direct LDL Cholesterol 114.39 mg/dL (100-129)
[2021-06-20 14:07] LABS: 25-OH Vitamin D, Total 18.8 ng/mL (30-100)
[2021-06-20 14:11] LABS: Free T4 (Free Thyroxine) 1.26 ng/dl (0.78-2.19)
[2021-06-20 14:25] LABS: Thyroid Stimulating Hormone 1.14 uIU/mL (0.465-4.68)
[2021-06-20 14:56] LABS: Hemoglobin A1C 5.8 % (4.0-6.0)
== END ==
PROVIDERS: PCP Internal Medicine; Visit Provider Internal Medicine
DX: E55.9 Vitamin D deficiency, unspecified (principal); I10 Essential (primary) hypertension; E66.9 Obesity, unspecified
CPT/HCPCS: 36415; 80053; 80061; 82306; 83036; 84439; 84443; 85025

== ENCOUNTER → 2022-06-28 08:56 | Outpatient (CLI) | payer BC, SELFPAY ==
[2022-06-28 09:42] LABS: Basophils # 0.2 K/mm3 (0-0.2); Basophils % 1.8 % (0.1-2.0); Eosinophils # 0.3 K/mm3 (0.0-0.4); Eosinophils % 3.4 % (0.1-12.0); Hematocrit 41.3 % (37.0-47.0); Hemoglobin 13.4 g/dL (12.2-16.2); Lymphocytes # 2.4 K/mm3 (0.7-4.5); Lymphocytes % 25.1 % (10-50); Mean Corpuscular HGB Conc 32.3 g/dL (31.8-35.4); Mean Corpuscular Hemoglobin 27.7 pg (27.0-31.2); Mean Corpuscular Volume 85.7 fl (81-99); Mean Platelet Volume 8.2 fl (7.4-10.4); Monocytes # 0.5 K/mm3 (0.1-1.0); Monocytes % 4.9 % (1.7-9.3); Neutrophils % 64.7 % (37.0-80.0); Platelet Count 365 K/mm3 (142-424); Red Blood Count 4.82 M/mm3 (4.20-5.40); Red Cell Distribution Width 14.5 % (11.5-17.5); White Blood Count 9.3 K/mm3 (4.8-10.8)
[2022-06-28 09:54] LABS: Hemoglobin A1C 5.7 % (4.0-6.0)
[2022-06-28 10:19] LABS: Alanine Aminotransferase 20 U/L (12-78); Albumin Level 4.3 g/dl (3.5-5.0); Albumin/Globulin Ratio 1.5 (1.1-1.8); Alkaline Phosphatase 85 U/L (38-126); Anion Gap 10.4 mEq/L (5-15); Aspartate Amino Transferase 23 U/L (14-36); Bilirubin,Total 0.3 mg/dl (0.2-1.3); Blood Urea Nitrogen 16 mg/dl (7-17); Calcium 9.1 mg/dl (8.4-10.2); Carbon Dioxide 32 mmol/L (22.0-30.0); Chloride 104 mmol/L (98-107); Chol/HDL Ratio 3.4 (1-3.5); Cholesterol 186 mg/dl (140-200); Estimated Glomerular Filt Rate 104 ml/min (>60); GFR (African American) 126 ML/MIN (>60); Globulin 2.9 g/dL (1.3-3.2); Glucose 101 mg/dl (74-100); HDL Cholesterol 54 mg/dl (40-60); Potassium 4.4 mmoL/L (3.5-5.1); Sodium 142 mmol/L (136-145); Total Protein,Serum 7.2 g/dl (6.3-8.2); Triglycerides 129 mg/dl (30-150); VLDL Cholesterol 26 mg/dL (0-40)
[2022-06-28 10:30] LABS: Direct LDL Cholesterol 107.95 mg/dL (100-129)
[2022-06-28 10:37] LABS: Free T4 (Free Thyroxine) 1.22 ng/dl (0.78-2.19)
== END ==
PROVIDERS: Nurse Practitioner Adult Health; PCP Internal Medicine
DX: I10 Essential (primary) hypertension (principal); E66.01 Morbid (severe) obesity due to excess calories; Z68.43 Body mass index [BMI] 50.0-59.9, adult
CPT/HCPCS: 36415; 80053; 80061; 83036; 84439; 84443; 85025

== ENCOUNTER → 2023-04-17 12:56 | Outpatient (CLI) | payer BC, SELFPAY ==
[2023-04-17 14:28] LABS: Chloride 102 mmol/L (98-107)
[2023-04-17 14:29] LABS: Potassium 3.8 mmoL/L (3.5-5.1); Sodium 140 mmol/L (136-145)
[2023-04-17 14:31] LABS: Alanine Aminotransferase 30 U/L (12-78); Albumin Level 4.5 g/dl (3.5-5.0); Albumin/Globulin Ratio 1.7 (1.1-1.8); Alkaline Phosphatase 93 U/L (38-126); Anion Gap 13.8 mEq/L (5-15); Aspartate Amino Transferase 30 U/L (14-36); Bilirubin,Total 0.5 mg/dl (0.2-1.3); Blood Urea Nitrogen 19 mg/dl (7-17); Carbon Dioxide 28 mmol/L (22.0-30.0); Cholesterol 201 mg/dl (140-200); Estimated Glomerular Filt Rate 75 ml/min (>60); GFR (African American) 90 ML/MIN (>60); Globulin 2.6 g/dL (1.3-3.2); Total Protein,Serum 7.1 g/dl (6.3-8.2); Triglycerides 125 mg/dl (30-150); VLDL Cholesterol 25 mg/dL (0-40)
[2023-04-17 14:32] LABS: Calcium 9.3 mg/dl (8.4-10.2); Chol/HDL Ratio 3.9 (1-3.5); Glucose 94 mg/dl (74-100); HDL Cholesterol 52 mg/dl (40-60)
[2023-04-17 14:43] LABS: Direct LDL Cholesterol 113.99 mg/dL (100-129)
[2023-04-17 16:16] LABS: Hemoglobin A1C 5.5 % (4.0-6.0)
== END ==
PROVIDERS: PCP Nurse Practitioner Adult Health; Visit Provider Nurse Practitioner Adult Health
DX: E66.9 Obesity, unspecified (principal); Z68.41 Body mass index [BMI] 40.0-44.9, adult; Z79.899 Other long term (current) drug therapy
CPT/HCPCS: 36415; 80053; 80061; 83036

== ENCOUNTER 2023-10-07 12:17 | Outpatient (CLI) | payer BC, SELFPAY ==
[2023-10-07 13:14] LABS: Hemoglobin A1C 5.3 % (4.0-6.0)
[2023-10-07 13:41] LABS: Chol/HDL Ratio 2.9 (1-3.5); Cholesterol 198 mg/dl (140-200); HDL Cholesterol 68 mg/dl (40-60); Triglycerides 131 mg/dl (30-150); VLDL Cholesterol 26 mg/dL (0-40)
[2023-10-07 13:52] LABS: Direct LDL Cholesterol 103.63 mg/dL (100-129)
[2023-10-08 11:30] LABS: Alanine Aminotransferase 26 U/L (12-78); Albumin Level 4.2 g/dl (3.5-5.0); Albumin/Globulin Ratio 1.4 (1.1-1.8); Alkaline Phosphatase 80 U/L (38-126); Anion Gap 16.2 mEq/L (5-15); Aspartate Amino Transferase 27 U/L (14-36); Bilirubin,Total 0.5 mg/dl (0.2-1.3); Blood Urea Nitrogen 21 mg/dl (7-17); Calcium 9.6 mg/dl (8.4-10.2); Carbon Dioxide 27 mmol/L (22.0-30.0); Chloride 100 mmol/L (98-107); Estimated Glomerular Filt Rate 87 ml/min (>60); GFR (African American) 105 ML/MIN (>60); Globulin 2.9 g/dL (1.3-3.2); Glucose 85 mg/dl (74-100); Potassium 4.2 mmoL/L (3.5-5.1); Sodium 139 mmol/L (136-145); Total Protein,Serum 7.1 g/dl (6.3-8.2)
[2023-10-08 11:59] LABS: Thyroid Stimulating Hormone < 0.02 uIU/mL (0.465-4.68)
== END 2023-10-07 23:59 | disposition home or self-care (01) ==
LOC: LAB 12:19
PROVIDERS: PCP Physician Assistant; Visit Provider Internal Medicine Endocrinology, Diabetes & Metabolism
DX: E66.01 Morbid (severe) obesity due to excess calories (principal); Z68.42 Body mass index [BMI] 45.0-49.9, adult
CPT/HCPCS: 36415; 80053; 80061; 83036; 84443

== ENCOUNTER 2024-09-13 17:00 | Outpatient (RCR) | payer BC, SELFPAY | END 2024-09-13 23:59 | disposition home or self-care (01) | LOC: PT 17:00 | PROVIDERS: PCP Physician Assistant; Visit Provider Urology Pediatric Urology | DX: Z96.652 Presence of left artificial knee joint (principal) | CPT/HCPCS: 97014; 97110; 97163; G0283 ==

== ENCOUNTER 2024-09-20 08:55 | Outpatient (RCR) | payer BC, SELFPAY | END 2024-09-20 23:59 | disposition home or self-care (01) | LOC: PT 08:55 | PROVIDERS: PCP Physician Assistant; Visit Provider Urology Pediatric Urology | DX: Z47.89 Encounter for other orthopedic aftercare (principal); Z96.652 Presence of left artificial knee joint | CPT/HCPCS: 97110; 97530 ==